=== PATIENT | female | born 1960 | race African-American/Black ===

== ENCOUNTER 2016-07-08 12:26 | Emergency (ER) | payer BC, OTHER ==
[~2016-07-08] VITALS: Ht 160 cm; Wt 83.9 kg
--- NOTE | ~2016-07-08 | EKG ---
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
[~2016-07-08 12:26] MED LIST: ASPIR 8181 MG PO; ASPIRIN EC81 M1 PO; ATIVAN1 MG PO; AZITHROMYCIN 2250 MG PO; BENAZEPRIL 10 M10 MG PO; BIOTIN800 MCG PO; CALCIUM 500 +1 EAC5 PO; CELLCEPT500 MG PO; CLEOCIN HCL300 MG PO; DEXILANT60 MG PO; DURAGESIC1 EAC2 TD; FIBER LAXATIV0.52 GM PO; HYDROCHLOROTHIA25 M2 PO; HYDROCODONE-APA1 TA1 PO; HYDROXYCHLOROQ200 M1 PO; LOPRESSOR25 PO; LORTAB 5 MG/5001 TA1 PO; MAXZIDE-25 MG1 EACH PO; MELOXICAM15 MG PO; METFORMIN HCL500 MG PO; MOBIC15 MG PO; NAPROSYN500 MG PO; OMEPRAZOLE20 MG PO; PERCOCET 5-3251 EACH PO; PLAVIX 75 MG TA75 M1 PO; PRENATAL; PRILOSEC 10MG C10 MG PO; VALACYCLOVIR500 MG PO; VITAMIN D 5050000 I1 PO
[2016-07-08 14:23] LABS: MCH 29.9 pg (26.0-34.0); PLATELET COUNT 359 thou/uL (150-400); RBC 3.67 mil/uL (4.20-5.00)
[2016-07-08 14:25] LABS: HEMATOCRIT 32.7 % (37.0-47.0); MCHC 33.6 g/dL (28.0-37.0); MCV 89.1 fL (80.0-100.0); WBC 3.3 thou/uL (4.0-11.0)
[2016-07-08 14:29] LABS: CALCIUM 9.5 mg/dL (8.5-10.1); CREATININE 1.6 mg/dL (0.6-1.3); POTASSIUM 5.2 mmol/L (3.5-5.1)
[2016-07-08 14:39] LABS: MANUAL DIFF YES
[2016-07-08 15:00] LABS: ABSOLUTE NEUTROPHILS 1.4 thou/uL (1.4-8.2); PLATELET ESTIMATE NORMAL; TOTAL CELL COUNT 100
== END 2016-07-08 15:23 ==
LOC: ER 12:26
PROVIDERS: Emergency Medicine
DX: K92.2 Gastrointestinal hemorrhage, unspecified (principal); M32.9 Systemic lupus erythematosus, unspecified; K21.9 Gastro-esophageal reflux disease without esophagitis; F41.9 Anxiety disorder, unspecified; Z90.49 Acquired absence of other specified parts of digestive tract; G89.29 Other chronic pain; Z88.1 Allergy status to other antibiotic agents; Z88.0 Allergy status to penicillin; Z88.5 Allergy status to narcotic agent; Z88.8 Allergy status to other drugs, medicaments and biological substances; Z87.891 Personal history of nicotine dependence

== ENCOUNTER → 2016-07-11 | Outpatient (CLI) | payer BC, OTHER | LOC: HYPER 07:06 | DX: T81.89XA Other complications of procedures, not elsewhere classified, initial encounter (principal); I70.235 Atherosclerosis of native arteries of right leg with ulceration of other part of foot; L97.511 Non-pressure chronic ulcer of other part of right foot limited to breakdown of skin; E11.621 Type 2 diabetes mellitus with foot ulcer; I10 Essential (primary) hypertension; Z79.84 Long term (current) use of oral hypoglycemic drugs; Z86.718 Personal history of other venous thrombosis and embolism; Z87.891 Personal history of nicotine dependence; Y83.8 Other surgical procedures as the cause of abnormal reaction of the patient, or of later complication, without mention of misadventure at the time of the procedure ==

== ENCOUNTER → 2016-07-20 | Outpatient (CLI) | payer BC, OTHER | LOC: SPEC 12:40 | DX: I82.4Z1 Acute embolism and thrombosis of unspecified deep veins of right distal lower extremity (principal); M32.8 Other forms of systemic lupus erythematosus; K21.9 Gastro-esophageal reflux disease without esophagitis; J18.8 Other pneumonia, unspecified organism; F41.9 Anxiety disorder, unspecified; Z87.891 Personal history of nicotine dependence ==

== ENCOUNTER → 2016-07-27 | Outpatient (CLI) | payer BC, OTHER | LOC: NUC | DX: R07.9 Chest pain, unspecified (principal) ==

== ENCOUNTER → 2016-07-27 | Outpatient (CLI) | payer BC, OTHER | LOC: HYPER | DX: T81.89XD Other complications of procedures, not elsewhere classified, subsequent encounter (principal); I70.235 Atherosclerosis of native arteries of right leg with ulceration of other part of foot; L97.514 Non-pressure chronic ulcer of other part of right foot with necrosis of bone; E11.621 Type 2 diabetes mellitus with foot ulcer; E11.52 Type 2 diabetes mellitus with diabetic peripheral angiopathy with gangrene; M32.8 Other forms of systemic lupus erythematosus; I10 Essential (primary) hypertension; Z79.84 Long term (current) use of oral hypoglycemic drugs; Z86.718 Personal history of other venous thrombosis and embolism; Z87.891 Personal history of nicotine dependence; Y83.8 Other surgical procedures as the cause of abnormal reaction of the patient, or of later complication, without mention of misadventure at the time of the procedure ==

== ENCOUNTER → 2016-08-24 | Outpatient (CLI) | payer BC, OTHER | LOC: HYPER 07:08 | DX: I70.235 Atherosclerosis of native arteries of right leg with ulceration of other part of foot (principal); L97.514 Non-pressure chronic ulcer of other part of right foot with necrosis of bone; E11.621 Type 2 diabetes mellitus with foot ulcer; E11.52 Type 2 diabetes mellitus with diabetic peripheral angiopathy with gangrene; I10 Essential (primary) hypertension; M32.8 Other forms of systemic lupus erythematosus; Z86.718 Personal history of other venous thrombosis and embolism; Z79.84 Long term (current) use of oral hypoglycemic drugs; Z87.891 Personal history of nicotine dependence ==

== ENCOUNTER 2016-09-14 05:48 | Day surgery (SDC) | payer BC, OTHER ==
[~2016-09-14] VITALS: Ht 162.6 cm; Wt 81.2 kg
--- NOTE | ~2016-09-14 | S ---
[facility] [place] [address] SURGICAL PATH RPT PROCEDURE Name: EJ VILLALPANDO Room #: DEP [facility]..#: [id number] Admission: 09/14/16 Date of : 64 Discharge: 09/14/16 Report #: [id number] Path Case #: [id number] PATHOLOGY REPORT COLLECTION DATE: 09/14/2016 RECEIVED DATE: 09/14/2016 SUBMITTING PHYS: Dr. Enrrique Garcia OTHER PHYS: Dr. Danie Trinh SPECIMEN(S) RECEIVED: A.Right foot second digit * * * * * * * * * * * * FINAL DIAGNOSIS: "Right foot second digit", amputation: - Skin and subcutaneous tissue with acute inflammation, necrosis, granulation tissue and fat necrosis with pseudoepitheliomatous hyperplasia. - Decalcified bone and articular cartilage with focal acute osteomyelitis. PATHOLOGIST: Jodie Bryant M.D. REPORT ELECTRONICALLY SIGNED BY: Jodie Bryant M.D. DATE/TIME: 09/16/2016 17:09 * * * * * * * * * * * * GROSS PATHOLOGY: The specimen is received in formalin labeled "Ej Villalpando, right foot second toe". Received is an amputated digit measuring 2.8 x 2.2 x 1.8 cm in greatest dimensions. The bone margin is not grossly identified. The soft tissue margin is inked black. The nail is present and has previously been inked green. The epidermal surface is blackened and hard in appearance. Soft tissue margin is inked black. A full-length longitudinal cross-section is submitted in cassette A1, following decalcification. Also received within the specimen container is an additional segment of bone displaying one jagged margin and one convex margin measuring 1.3 x 0.9 x 0.7 cm. The jagged margin is inked black. A full-length longitudinal cross section is submitted in cassette A2, following decalcification. (CAA; 09/15/2016) CLINICAL HISTORY: Right foot second toe gangrene [address] [address] SURGICAL PATH RPT PROCEDURE Name: EJ VILLALPANDO Room #: DE[place] [facility] [place]#: [id number] Admission: 09/14/16 Date of : 64 Discharge: 09/14/16 Report #: [id number] Path Case #: [id number] INITIAL CPT CODE(S): A; 48779, 60095 Professional services performed by [facility] at [address], [place] [address] Technical services performed by [facility] at [address] [place] [address], [place] [address]. [facility] [address] [place] [address] PHONE: [phone] DIRECTOR: David Grimaldo M.D. * * * END OF REPORT * * *
--- NOTE | ~2016-09-14 | O ---
[facility] [place] [address] OPERATIVE REPORT Name: EJ BURR Room #: DEP [facility]..#: [id number] Admission: 09/14/16 Attend Phys: Enrrique Garcia MD Discharge: 09/14/16 Date of : 64 Report #: [id number] THIS REPORT FOR: //name// CC: Enrrique Garcia Danie Trinh DATE OF SERVICE: 09/14/2016 DATE OF SURGERY: 09/14/2016. PREOPERATIVE DIAGNOSIS: Right second toe gangrene. POSTOPERATIVE DIAGNOSIS: Right second toe gangrene. PROCEDURE: Right second toe amputation. SURGEON: Enrrique Garcia M.D. ANESTHESIA: General. ESTIMATED BLOOD LOSS: Minimal. DRAINS: No drains. TOURNIQUET TIME: 10 minutes. DESCRIPTION OF PROCEDURE: The patient brought to the operating room where she was placed under general anesthesia. Once under adequate general anesthesia, her right lower extremity was prepped and draped in sterile manner. The extremity was elevated and tourniquet placed to 300 mmHg. A fishmouth type incision was then made about the proximal phalanx of the second toe. This was dissected sharply down to the bone, which was then exposed and a sagittal saw was then used to transect the proximal phalanx at the second toe thus amputating the second toe completely. Once completely removed, the wound was irrigated copiously and closed with 3-0 nylon for the skin. The wounds were dressed with Xeroform, 4 x 4s, and sterile soft compressive dressing was placed. Tourniquet was let down at approximately 10 minutes, toes were pink and warm with good capillary refill. There were no complications from the procedure. The patient tolerated the procedure well and was taken to recovery room without incident. <ELECTRONICALLY SIGNED> By: Enrrique Garcia MD 09/16/16 1035 1048 1103 Enrrique Garcia MD /nt
[~2016-09-14 05:48] MED LIST changes: +BIOTIN5000 MCG PO; +IRON325 PO; +LIPITOR10 MG PO; +LYRICA 50 MG50 MG PO; +VITAMIN D250000 UNIT PO
[2016-09-14 08:30] VITALS: BP 109/66
[2016-09-14] MEDS ORDERED: PERCOCET PO (10:42)
[2016-09-14 11:44] VITALS: BP 109/66
== END 2016-09-14 12:25 | disposition home or self-care (01) ==
LOC: OR 05:48 → TBA 05:48 → OR 09:23
DX: E11.52 Type 2 diabetes mellitus with diabetic peripheral angiopathy with gangrene (principal); F41.9 Anxiety disorder, unspecified; G47.33 Obstructive sleep apnea (adult) (pediatric); I10 Essential (primary) hypertension; E78.00 Pure hypercholesterolemia, unspecified; K21.9 Gastro-esophageal reflux disease without esophagitis; M32.9 Systemic lupus erythematosus, unspecified; Z87.01 Personal history of pneumonia (recurrent); Z87.891 Personal history of nicotine dependence; Z90.49 Acquired absence of other specified parts of digestive tract; Z79.82 Long term (current) use of aspirin
CPT/HCPCS: 50010; 50101; 50386; 50951; 56527; 57091; 62110; 62900; 70005

== ENCOUNTER → 2016-09-23 | Outpatient (CLI) | payer BC, OTHER ==
[~2016-09-23] MED LIST changes: +PERCOCET PO
== END ==
LOC: ULTRA 03:21 → SPEC 03:21
DX: M79.661 Pain in right lower leg (principal); I73.9 Peripheral vascular disease, unspecified; I74.3 Embolism and thrombosis of arteries of the lower extremities; Z79.82 Long term (current) use of aspirin

== ENCOUNTER → 2016-09-23 | Outpatient (CLI) | payer BC, OTHER | LOC: HYPER 05:48 | DX: E11.621 Type 2 diabetes mellitus with foot ulcer (principal); L97.511 Non-pressure chronic ulcer of other part of right foot limited to breakdown of skin; E11.69 Type 2 diabetes mellitus with other specified complication; M32.8 Other forms of systemic lupus erythematosus; E11.52 Type 2 diabetes mellitus with diabetic peripheral angiopathy with gangrene; I10 Essential (primary) hypertension; I74.3 Embolism and thrombosis of arteries of the lower extremities; Z79.84 Long term (current) use of oral hypoglycemic drugs; Z48.89 Encounter for other specified surgical aftercare; Z86.718 Personal history of other venous thrombosis and embolism; Z87.891 Personal history of nicotine dependence ==

== ENCOUNTER → 2016-10-11 | Outpatient (CLI) | payer BC, OTHER | LOC: HYPER 07:09 | DX: T81.89XD Other complications of procedures, not elsewhere classified, subsequent encounter (principal); I70.235 Atherosclerosis of native arteries of right leg with ulceration of other part of foot; E11.621 Type 2 diabetes mellitus with foot ulcer; L97.514 Non-pressure chronic ulcer of other part of right foot with necrosis of bone; M32.8 Other forms of systemic lupus erythematosus; E11.52 Type 2 diabetes mellitus with diabetic peripheral angiopathy with gangrene; I10 Essential (primary) hypertension; Z86.718 Personal history of other venous thrombosis and embolism; Z79.84 Long term (current) use of oral hypoglycemic drugs; Z87.891 Personal history of nicotine dependence; Y83.8 Other surgical procedures as the cause of abnormal reaction of the patient, or of later complication, without mention of misadventure at the time of the procedure ==

== ENCOUNTER → 2016-10-26 | Outpatient (CLI) | payer BC, OTHER | LOC: HYPER 06:56 | DX: T81.89XD Other complications of procedures, not elsewhere classified, subsequent encounter (principal); E11.621 Type 2 diabetes mellitus with foot ulcer; L97.514 Non-pressure chronic ulcer of other part of right foot with necrosis of bone; I70.235 Atherosclerosis of native arteries of right leg with ulceration of other part of foot; M32.8 Other forms of systemic lupus erythematosus; E11.52 Type 2 diabetes mellitus with diabetic peripheral angiopathy with gangrene; I10 Essential (primary) hypertension; Z48.89 Encounter for other specified surgical aftercare; Z86.718 Personal history of other venous thrombosis and embolism; Z87.891 Personal history of nicotine dependence; Y83.8 Other surgical procedures as the cause of abnormal reaction of the patient, or of later complication, without mention of misadventure at the time of the procedure ==

== ENCOUNTER → 2016-11-07 | Outpatient (CLI) | payer BC, OTHER | LOC: HYPER 06:58 | DX: T81.89XD Other complications of procedures, not elsewhere classified, subsequent encounter (principal); I70.235 Atherosclerosis of native arteries of right leg with ulceration of other part of foot; E11.621 Type 2 diabetes mellitus with foot ulcer; L97.514 Non-pressure chronic ulcer of other part of right foot with necrosis of bone; M32.8 Other forms of systemic lupus erythematosus; I96 Gangrene, not elsewhere classified; I10 Essential (primary) hypertension; Z87.891 Personal history of nicotine dependence; Z79.84 Long term (current) use of oral hypoglycemic drugs; Z86.718 Personal history of other venous thrombosis and embolism; Y83.8 Other surgical procedures as the cause of abnormal reaction of the patient, or of later complication, without mention of misadventure at the time of the procedure ==

== ENCOUNTER → 2016-12-02 | Outpatient (CLI) | payer BC, OTHER | LOC: HYPER 11-28 17:29 | DX: T87.89 Other complications of amputation stump (principal); E11.621 Type 2 diabetes mellitus with foot ulcer; L97.514 Non-pressure chronic ulcer of other part of right foot with necrosis of bone; E11.52 Type 2 diabetes mellitus with diabetic peripheral angiopathy with gangrene; I70.235 Atherosclerosis of native arteries of right leg with ulceration of other part of foot; I10 Essential (primary) hypertension; Z87.891 Personal history of nicotine dependence; Z86.718 Personal history of other venous thrombosis and embolism; Z48.89 Encounter for other specified surgical aftercare; Z79.84 Long term (current) use of oral hypoglycemic drugs; Y83.5 Amputation of limb(s) as the cause of abnormal reaction of the patient, or of later complication, without mention of misadventure at the time of the procedure ==

== ENCOUNTER → 2016-12-08 | Outpatient (CLI) | payer BC, OTHER | LOC: SPEC 11:51 | DX: I73.9 Peripheral vascular disease, unspecified (principal); E04.2 Nontoxic multinodular goiter; J30.2 Other seasonal allergic rhinitis; E06.3 Autoimmune thyroiditis; K21.9 Gastro-esophageal reflux disease without esophagitis; M32.9 Systemic lupus erythematosus, unspecified; R49.0 Dysphonia; R09.89 Other specified symptoms and signs involving the circulatory and respiratory systems; Z79.01 Long term (current) use of anticoagulants ==

== ENCOUNTER → 2017-05-11 | Outpatient (CLI) | payer BC, OTHER ==
[~2017-05-11] MED LIST changes: +VITAMIN C100 MG PO; +ZANAFLEX4 MG PO
== END ==
LOC: SPEC 06:20 → ULTRA 10:06
DX: I73.9 Peripheral vascular disease, unspecified (principal); I99.8 Other disorder of circulatory system; Z98.890 Other specified postprocedural states; Z98.84 Bariatric surgery status; Z98.61 Coronary angioplasty status

== ENCOUNTER → 2018-02-26 | Outpatient (CLI) | payer OTHER | LOC: RAD 03:01 | DX: Z12.31 Encounter for screening mammogram for malignant neoplasm of breast (principal) ==

== ENCOUNTER → 2018-05-01 | Outpatient (CLI) | payer OTHER | LOC: SPEC 09:47 | DX: I73.9 Peripheral vascular disease, unspecified (principal) ==

== ENCOUNTER → 2018-05-07 | Outpatient (CLI) | payer OTHER ==
[~2018-05-07] VITALS: Ht 165.1 cm; Wt 80.3 kg
[~2018-05-07] MED LIST changes: +GABAPENTIN 100100 MG PO
[2018-05-07 08:34] VITALS: BP 124/64
[2018-05-07 08:38] LABS: HEMATOCRIT 33.1 % (37.0-47.0); HEMOGLOBIN 10.8 gm/dL (12.0-15.0); MCHC 32.7 g/dL (28.0-37.0); MCV 88.8 fL (80.0-100.0); RBC 3.73 mil/uL (4.20-5.00); RDW 15.1 % (10.5-14.5); WBC 3.2 thou/uL (4.0-11.0)
[2018-05-07 08:51] LABS: CALCIUM 8.9 mg/dL (8.5-10.1)
[2018-05-07 08:52] LABS: PROTIME 9.4 Seconds (9.3-11.4)
[2018-05-07 11:50] VITALS: BP 129/67
[2018-05-07 12:06] VITALS: BP 136/51
[2018-05-07 12:42] VITALS: BP 122/55
== END | disposition home or self-care (01) ==
LOC: SPEC 07:46
PROVIDERS: Radiology Diagnostic Radiology
DX: I70.211 Atherosclerosis of native arteries of extremities with intermittent claudication, right leg (principal); I10 Essential (primary) hypertension; E11.9 Type 2 diabetes mellitus without complications; E78.00 Pure hypercholesterolemia, unspecified; F41.9 Anxiety disorder, unspecified; Z90.49 Acquired absence of other specified parts of digestive tract; Z98.890 Other specified postprocedural states; Z88.0 Allergy status to penicillin; Z88.8 Allergy status to other drugs, medicaments and biological substances; Z79.82 Long term (current) use of aspirin; Z79.899 Other long term (current) drug therapy; Z79.01 Long term (current) use of anticoagulants; Z86.718 Personal history of other venous thrombosis and embolism

== ENCOUNTER → 2018-06-07 | Outpatient (CLI) | payer OTHER | LOC: SPEC 09:45 | DX: I77.1 Stricture of artery (principal) ==

== ENCOUNTER → 2018-07-06 | Outpatient (CLI) | payer OTHER | LOC: SPEC 14:52 | DX: I73.9 Peripheral vascular disease, unspecified (principal) ==

== ENCOUNTER → 2018-07-19 | Outpatient (CLI) | payer OTHER | LOC: ULTRA 10:37 | DX: R10.32 Left lower quadrant pain (principal) ==

== ENCOUNTER → 2018-10-09 | Outpatient (CLI) | payer OTHER | LOC: SPEC 07:56 | DX: T87.89 Other complications of amputation stump (principal); M32.9 Systemic lupus erythematosus, unspecified; K21.9 Gastro-esophageal reflux disease without esophagitis; E11.9 Type 2 diabetes mellitus without complications; I10 Essential (primary) hypertension; E78.00 Pure hypercholesterolemia, unspecified; F41.9 Anxiety disorder, unspecified; Z89.421 Acquired absence of other right toe(s); Z90.49 Acquired absence of other specified parts of digestive tract; Z92.3 Personal history of irradiation; Z88.0 Allergy status to penicillin; Z88.1 Allergy status to other antibiotic agents; Z88.5 Allergy status to narcotic agent; Z79.899 Other long term (current) drug therapy; Y83.5 Amputation of limb(s) as the cause of abnormal reaction of the patient, or of later complication, without mention of misadventure at the time of the procedure; Y92.89 Other specified places as the place of occurrence of the external cause ==

== ENCOUNTER → 2018-12-31 | Outpatient (CLI) | payer OTHER | LOC: ULTRA 09:47 | DX: I73.9 Peripheral vascular disease, unspecified (principal) ==

== ENCOUNTER → 2019-02-27 | Outpatient (CLI) | payer OTHER ==
[~2019-02-27] MED LIST changes: +ALL DAY ALLERGY10 M3 PO; +AZELASTINE137 MCG/0. NASAL; +BETAMETHASONE D60 M2 PO; +CYANOCOBAL1000 MCG/1 IM; +DILTIAZEM 24HR120 M1 PO; +GLUCOPHAGE XR750 M1 PO; +HAIR, SKIN & N1 EAC3 PO; +NEURONTIN300 MG PO; +PANTOPRAZOLE SO40 M1 PO; +STEGLATRO15 MG PO; +STOOL SOFTENER100 MG PO; +VITAMIN C500 M1 PO
== END ==
LOC: RAD 07:49
DX: Z12.31 Encounter for screening mammogram for malignant neoplasm of breast (principal)

== ENCOUNTER → 2019-03-06 | Day surgery (SDC) | payer OTHER ==
[~2019-03-06] VITALS: Ht 162.6 cm; Wt 80.7 kg
[2019-03-06 09:44] LABS: HEMATOCRIT 36.9 % (37.0-47.0); HEMOGLOBIN 11.7 gm/dL (12.0-15.0); MCH 28.7 pg (26.0-34.0); MCHC 31.8 g/dL (28.0-37.0); MCV 90.2 fL (80.0-100.0); RBC 4.08 mil/uL (4.20-5.00); RDW 14.4 % (10.5-14.5); WBC 3.3 thou/uL (4.0-11.0)
[2019-03-06 09:48] LABS: CALCIUM 9.6 mg/dL (8.5-10.1); CREATININE 1.2 mg/dL (0.6-1.0); POTASSIUM 4.2 mmol/L (3.5-5.1)
[2019-03-06 11:06] VITALS: BP 129/62
[2019-03-06 12:30] VITALS: BP 129/62
--- NOTE | 2019-03-06 13:53 | O ---
[facility] [place] [address] OPERATIVE REPORT Name: EJ BURR Room #: REG [facility]#: [id number] Admission: 03/06/19 Attend Phys: Clinton Robbins MD Discharge: Date of : 64 Report #: [id number] THIS REPORT FOR: //name// CC: Danie Taveras DATE OF SERVICE: 03/06/[address] Clinton Robbins, Dr. Danie Trinh. PREOPERATIVE DIAGNOSIS: Ventral incisional hernia. POSTOPERATIVE DIAGNOSIS: Ventral incisional hernia. PROCEDURE: Repair of a ventral incisional hernia with a small Ventralex [place] mesh patch. SURGEON: Clinton Robbins MD ANESTHESIA: General. DESCRIPTION OF PROCEDURE: The patient was brought to the operating room and placed on operative table in the supine position. Sequential compression devices were in place for DVT prophylaxis. There was no indication for preoperative antibiotics. The patient underwent a general LMA anesthesia and the abdomen was then prepped and draped in a sterile fashion. Skin and subcutaneous tissue around the area was infiltrated with 0.5% Marcaine. A transverse supraumbilical skin incision was then performed using #15 scalpel blade. Hemostasis was obtained using electrocautery. Dissection was carried down through subcutaneous tissue to the hernia sac which was dissected free, opened and the contents of the sac was then reduced back into the abdomen. Hernia sac was excised. A small Ventralex ST hernia patch was then placed intraabdominally and secured circumferentially with interrupted horizontal mattress transfascial 0 Prolene sutures. The fascia was then closed over the mesh patch using interrupted [id number] #1 PDS suture. The hernia tails were cut and then secured superiorly and inferiorly with simple interrupted 2-0 Vicryl sutures. The subcutaneous tissue was then reapproximated using simple interrupted 2-0 chromic sutures and the skin then closed with a running 4-0 subcuticular Vicryl stitch. Wound was then dressed with Dermabond, Telfa, 4 x 4 gauze, sponge and tape. The patient was then awakened from the general anesthesia and taken to recovery room in good condition. Estimated blood loss [address] [address] OPERATIVE REPORT Name: EJ BURR HENRIQUE Room #: REG [facility].#: [id number] Admission: 03/06/19 Attend Phys: Clinton Robbins MD Discharge: Date of : 64 Report #: [id number] was approximately 10 mL and the patient tolerated procedure well. All sponge, lap and instrument counts correct x 2. <ELECTRONICALLY SIGNED> By: Clinton Robbins MD 03/06/19 1353 1210 1219 Clinton Robbins MD /nt
--- NOTE | 2019-03-07 16:58 | EKG ---
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1960 Requested By: Clinton Robbins Order Number: [id number] MD: Chris Campbell Measurements Intervals [place] Rate: 66 P: 30 MS: 154 QRS: 35 QRSD: 70 T: 20 QT: 390 QTc: 409 Interpretive Statements Sinus rhythm Borderline T wave abnormalities Compared to ECG 07/08/2016 12:32:15 T-wave abnormality now present Sinus tachycardia no longer present Electronically Signed On 03-07-2019 16:58:19 [employer] by Chris Campbell [email or web address] <ELECTRONICALLY SIGNED> By: Chris Campbell MD, [facility] 03/07/19 1658 0 0 Chris Campbell MD, [facility] /EPI
== END | disposition home or self-care (01) ==
LOC: OR 08:53
PROVIDERS: Surgery
DX: K43.2 Incisional hernia without obstruction or gangrene (principal); Z98.890 Other specified postprocedural states; Z88.8 Allergy status to other drugs, medicaments and biological substances; Z79.899 Other long term (current) drug therapy; Z90.49 Acquired absence of other specified parts of digestive tract; Z88.0 Allergy status to penicillin
CPT/HCPCS: 50010; 50101; 50119; 50386; 50417; 54118; 56524; 56525; 56526; 62110; 62900; 70005

== ENCOUNTER → 2019-10-11 | Outpatient (CLI) | payer OTHER | LOC: SJCVCIMAG 10:04 | PROVIDERS: ATTEND Internal Medicine | DX: I70.203 Unspecified atherosclerosis of native arteries of extremities, bilateral legs (principal); E11.9 Type 2 diabetes mellitus without complications; I10 Essential (primary) hypertension; M32.9 Systemic lupus erythematosus, unspecified; E78.00 Pure hypercholesterolemia, unspecified; R07.9 Chest pain, unspecified; E78.5 Hyperlipidemia, unspecified; Z87.19 Personal history of other diseases of the digestive system; Z82.49 Family history of ischemic heart disease and other diseases of the circulatory system; Z87.891 Personal history of nicotine dependence; Z79.82 Long term (current) use of aspirin; Z79.899 Other long term (current) drug therapy; Z79.84 Long term (current) use of oral hypoglycemic drugs ==

== ENCOUNTER → 2019-10-22 | Outpatient (CLI) | payer OTHER ==
[~2019-10-22] MED LIST changes: +BIOTIN5 M1 PO; +CELLCEPT500 M1 IVPB; +DESYREL150 MG PO; +ESTRACE0.5 MG PO; +FISH OIL 1,001000 M3 PO; +METHYLPREDNISOLO4 MG PO; +PSYLLIUM HUSK1 GM; +VITAMIN D21250 MC1 PO
== END ==
LOC: SJCVCIMAG 08:41
PROVIDERS: ATTEND Internal Medicine
DX: I08.8 Other rheumatic multiple valve diseases (principal); R00.0 Tachycardia, unspecified; I10 Essential (primary) hypertension; E78.5 Hyperlipidemia, unspecified; E11.9 Type 2 diabetes mellitus without complications; Z82.49 Family history of ischemic heart disease and other diseases of the circulatory system; Z79.82 Long term (current) use of aspirin; Z79.899 Other long term (current) drug therapy

== ENCOUNTER 2019-11-01 07:54 | Outpatient (CLI) | payer OTHER ==
[~2019-11-01] VITALS: Ht 165.1 cm; Wt 81.6 kg
[~2019-11-01 07:54] MED LIST changes: -BIOTIN5 M1 PO; -CELLCEPT500 M1 IVPB; -DESYREL150 MG PO; -ESTRACE0.5 MG PO; -FISH OIL 1,001000 M3 PO; -METHYLPREDNISOLO4 MG PO; -PSYLLIUM HUSK1 GM; -VITAMIN D21250 MC1 PO
[2019-11-01 08:40] VITALS: BP 132/66
[2019-11-01 08:52] LABS: HEMATOCRIT 35.7 % (37.0-47.0); HEMOGLOBIN 11.7 gm/dL (12.0-15.0); MCH 29.9 pg (26.0-34.0); MCHC 32.8 g/dL (28.0-37.0); MCV 91.2 fL (80.0-100.0); RBC 3.91 mil/uL (4.20-5.00); RDW 14.5 % (10.5-14.5); WBC 3.7 thou/uL (4.0-11.0)
[2019-11-01 09:02] LABS: CALCIUM 9.2 mg/dL (8.5-10.1); CREATININE 1.3 mg/dL (0.6-1.0)
[2019-11-01] MEDS ORDERED: BIOTIN5 M1 PO (09:34)
[2019-11-01] MEDS ORDERED: ESTRACE0.5 MG PO (09:37)
[2019-11-01] MEDS ORDERED: VITAMIN D21250 MC1 PO (09:37)
[2019-11-01] MEDS ORDERED: FISH OIL 1,001000 M3 PO ×2 (09:38→09:39)
[2019-11-01] MEDS ORDERED: NEURONTIN300 MG PO (09:41)
[2019-11-01] MEDS ORDERED: METHYLPREDNISOLO4 MG PO (09:44)
[2019-11-01] MEDS ORDERED: CELLCEPT500 M1 IVPB (09:46)
[2019-11-01] MEDS ORDERED: PSYLLIUM HUSK1 GM (09:48)
[2019-11-01] MEDS ORDERED: DESYREL150 MG PO (09:49)
[2019-11-01 15:00] VITALS: BP 120/77
[2019-11-01] MEDS ORDERED: PLAVIX 75 MG TA75 M1 PO (15:04)
[2019-11-01 15:52] VITALS: BP 128/67
[2019-11-01 17:41] VITALS: BP 128/67
== END 2019-11-01 18:00 | disposition home or self-care (01) ==
LOC: CATH 07:54 → 2N 15:37 → CATH 18:00
PROVIDERS: ATTEND Nuclear Medicine Nuclear Cardiology
DX: I70.238 Atherosclerosis of native arteries of right leg with ulceration of other part of lower leg (principal); L97.919 Non-pressure chronic ulcer of unspecified part of right lower leg with unspecified severity; I70.1 Atherosclerosis of renal artery; I10 Essential (primary) hypertension; E78.5 Hyperlipidemia, unspecified; K21.9 Gastro-esophageal reflux disease without esophagitis; E11.9 Type 2 diabetes mellitus without complications; D64.9 Anemia, unspecified; Z98.890 Other specified postprocedural states; Z90.49 Acquired absence of other specified parts of digestive tract; Z79.899 Other long term (current) drug therapy; Z87.891 Personal history of nicotine dependence
CPT/HCPCS: 10081

== ENCOUNTER → 2019-11-08 | Outpatient (CLI) | payer OTHER ==
[~2019-11-08] MED LIST changes: +BIOTIN5 M1 PO; +CELLCEPT500 M1 IVPB; +DESYREL150 MG PO; +ESTRACE0.5 MG PO; +FISH OIL 1,001000 M3 PO; +METHYLPREDNISOLO4 MG PO; +PSYLLIUM HUSK1 GM; +VITAMIN D21250 MC1 PO
== END ==
LOC: SJCVC 10:40
PROVIDERS: ATTEND Internal Medicine
DX: R07.9 Chest pain, unspecified (principal); R06.09 Other forms of dyspnea; G47.33 Obstructive sleep apnea (adult) (pediatric); K21.9 Gastro-esophageal reflux disease without esophagitis; E11.9 Type 2 diabetes mellitus without complications; I10 Essential (primary) hypertension; Z82.49 Family history of ischemic heart disease and other diseases of the circulatory system; Z79.899 Other long term (current) drug therapy; Z87.891 Personal history of nicotine dependence

== ENCOUNTER → 2019-11-14 | Outpatient (CLI) | payer OTHER | LOC: RAD 11:04 | PROVIDERS: ATTEND Internal Medicine | DX: J98.4 Other disorders of lung (principal) ==

== ENCOUNTER → 2019-11-15 | Outpatient (CLI) | payer OTHER | LOC: CAT 08:11 | PROVIDERS: ATTEND Internal Medicine | DX: D35.01 Benign neoplasm of right adrenal gland (principal); R06.09 Other forms of dyspnea; I70.90 Unspecified atherosclerosis ==

== ENCOUNTER → 2020-02-25 | Outpatient (CLI) | payer OTHER | LOC: SJCVCIMAG 12:16 | PROVIDERS: ATTEND Nuclear Medicine Nuclear Cardiology | DX: I65.23 Occlusion and stenosis of bilateral carotid arteries (principal); I70.202 Unspecified atherosclerosis of native arteries of extremities, left leg; E11.51 Type 2 diabetes mellitus with diabetic peripheral angiopathy without gangrene; I10 Essential (primary) hypertension; M32.9 Systemic lupus erythematosus, unspecified; E78.00 Pure hypercholesterolemia, unspecified; I77.9 Disorder of arteries and arterioles, unspecified; Z95.828 Presence of other vascular implants and grafts; Z79.899 Other long term (current) drug therapy; Z87.891 Personal history of nicotine dependence ==

== ENCOUNTER → 2020-03-02 | Outpatient (CLI) | payer OTHER | LOC: CAT 09:31 | PROVIDERS: ATTEND Nuclear Medicine Nuclear Cardiology | DX: Z13.6 Encounter for screening for cardiovascular disorders (principal); I25.10 Atherosclerotic heart disease of native coronary artery without angina pectoris; E78.00 Pure hypercholesterolemia, unspecified ==

== ENCOUNTER → 2020-03-02 | Outpatient (CLI) | payer OTHER | LOC: BC 09:25 | PROVIDERS: ATTEND Internal Medicine | DX: Z12.31 Encounter for screening mammogram for malignant neoplasm of breast (principal) ==

== ENCOUNTER → 2020-09-01 | Outpatient (CLI) | payer OTHER ==
[~2020-09-01] MED LIST changes: +JARDIANCE25 MG PO; +VITAMIN B12-FO1 EAC1 PO
== END ==
LOC: SJCVCIMAG 08:32
PROVIDERS: ATTEND Nuclear Medicine Nuclear Cardiology
DX: T82.856A Stenosis of peripheral vascular stent, initial encounter (principal); I73.9 Peripheral vascular disease, unspecified; I77.9 Disorder of arteries and arterioles, unspecified; I10 Essential (primary) hypertension; E11.51 Type 2 diabetes mellitus with diabetic peripheral angiopathy without gangrene; E78.00 Pure hypercholesterolemia, unspecified; G47.33 Obstructive sleep apnea (adult) (pediatric); Z90.49 Acquired absence of other specified parts of digestive tract; Z98.890 Other specified postprocedural states; Z95.828 Presence of other vascular implants and grafts; Z88.0 Allergy status to penicillin; Z88.8 Allergy status to other drugs, medicaments and biological substances; Z79.84 Long term (current) use of oral hypoglycemic drugs; Z79.899 Other long term (current) drug therapy; Z87.891 Personal history of nicotine dependence; Z82.49 Family history of ischemic heart disease and other diseases of the circulatory system; Y83.8 Other surgical procedures as the cause of abnormal reaction of the patient, or of later complication, without mention of misadventure at the time of the procedure; Y92.89 Other specified places as the place of occurrence of the external cause

== ENCOUNTER → 2020-09-09 | Outpatient (CLI) | payer OTHER ==
[~2020-09-09] VITALS: Ht 165.1 cm; Wt 81.6 kg
[2020-09-09 07:11] VITALS: BP 138/75
[2020-09-09 07:48] LABS: HEMATOCRIT 39.1 % (37.0-47.0); HEMOGLOBIN 12.4 gm/dL (12.0-15.0); MCH 29.3 pg (26.0-34.0); MCHC 31.8 g/dL (28.0-37.0); RBC 4.25 mil/uL (4.20-5.00); RDW 15.2 % (10.5-14.5); WBC 4.2 thou/uL (4.0-11.0)
[2020-09-09 07:56] LABS: CALCIUM 9.6 mg/dL (8.5-10.1); CREATININE 1.1 mg/dL (0.6-1.0); POTASSIUM 4.1 mmol/L (3.5-5.1)
== END | disposition home or self-care (01) ==
LOC: CATH 06:19
PROVIDERS: ATTEND Nuclear Medicine Nuclear Cardiology
DX: I70.211 Atherosclerosis of native arteries of extremities with intermittent claudication, right leg (principal); M79.604 Pain in right leg; I70.1 Atherosclerosis of renal artery; I10 Essential (primary) hypertension; I25.10 Atherosclerotic heart disease of native coronary artery without angina pectoris; E78.5 Hyperlipidemia, unspecified; E11.9 Type 2 diabetes mellitus without complications; E78.00 Pure hypercholesterolemia, unspecified; D64.9 Anemia, unspecified; F41.9 Anxiety disorder, unspecified; K21.9 Gastro-esophageal reflux disease without esophagitis; E66.9 Obesity, unspecified; Z98.890 Other specified postprocedural states; Z79.899 Other long term (current) drug therapy; Z87.891 Personal history of nicotine dependence; Z90.49 Acquired absence of other specified parts of digestive tract; Z88.0 Allergy status to penicillin; Z88.8 Allergy status to other drugs, medicaments and biological substances

== ENCOUNTER → 2021-01-14 | Outpatient (CLI) | payer OTHER | LOC: SJCVCIMAG 09:02 | PROVIDERS: ATTEND Nuclear Medicine Nuclear Cardiology | DX: I65.23 Occlusion and stenosis of bilateral carotid arteries (principal); I70.201 Unspecified atherosclerosis of native arteries of extremities, right leg; G47.30 Sleep apnea, unspecified; I77.9 Disorder of arteries and arterioles, unspecified; I10 Essential (primary) hypertension; E11.9 Type 2 diabetes mellitus without complications; E78.00 Pure hypercholesterolemia, unspecified; M32.9 Systemic lupus erythematosus, unspecified; K21.9 Gastro-esophageal reflux disease without esophagitis; Z95.828 Presence of other vascular implants and grafts; Z88.1 Allergy status to other antibiotic agents; Z88.0 Allergy status to penicillin; Z88.5 Allergy status to narcotic agent; Z88.8 Allergy status to other drugs, medicaments and biological substances; Z79.899 Other long term (current) drug therapy; Z87.891 Personal history of nicotine dependence ==

== ENCOUNTER → 2021-03-03 | Outpatient (CLI) | payer OTHER | LOC: BC 08:50 | PROVIDERS: ATTEND Internal Medicine | DX: Z12.31 Encounter for screening mammogram for malignant neoplasm of breast (principal); N64.89 Other specified disorders of breast ==

== ENCOUNTER → 2021-04-07 | Outpatient (CLI) | payer OTHER ==
[~2021-04-07] MED LIST changes: +AZELASTINE205.5 MCG/ NARES; +COMBIGAN EYE DR10 ML OPHTHALMIC; +ELIDEL CREAM 1%30 G1 TOP; +FLONASE 0.05%50 MCG NARES; +TRULICITY1.5 MG/0.5 SUBQ; +VITAMIN B-1100 M2 PO
== END ==
LOC: SJCVCIMAG 14:46
PROVIDERS: ATTEND Internal Medicine
DX: T82.856A Stenosis of peripheral vascular stent, initial encounter (principal); I73.9 Peripheral vascular disease, unspecified; I77.9 Disorder of arteries and arterioles, unspecified; I10 Essential (primary) hypertension; E11.9 Type 2 diabetes mellitus without complications; E78.00 Pure hypercholesterolemia, unspecified; E11.40 Type 2 diabetes mellitus with diabetic neuropathy, unspecified; K21.9 Gastro-esophageal reflux disease without esophagitis; G47.33 Obstructive sleep apnea (adult) (pediatric); Z88.1 Allergy status to other antibiotic agents; Z88.0 Allergy status to penicillin; Z88.5 Allergy status to narcotic agent; Z88.2 Allergy status to sulfonamides; Z88.8 Allergy status to other drugs, medicaments and biological substances; Z79.899 Other long term (current) drug therapy; Z87.891 Personal history of nicotine dependence; Y84.8 Other medical procedures as the cause of abnormal reaction of the patient, or of later complication, without mention of misadventure at the time of the procedure; Y92.89 Other specified places as the place of occurrence of the external cause

== ENCOUNTER → 2021-04-20 | Outpatient (CLI) | payer OTHER ==
[~2021-04-20] VITALS: Ht 165.1 cm; Wt 68.5 kg
[2021-04-20 08:32] VITALS: BP 103/64
== END | disposition home or self-care (01) ==
LOC: CATH 08:05
PROVIDERS: ATTEND Internal Medicine
DX: I70.211 Atherosclerosis of native arteries of extremities with intermittent claudication, right leg (principal); I70.1 Atherosclerosis of renal artery; M79.604 Pain in right leg; M79.605 Pain in left leg; I10 Essential (primary) hypertension; I25.10 Atherosclerotic heart disease of native coronary artery without angina pectoris; E11.9 Type 2 diabetes mellitus without complications; E78.00 Pure hypercholesterolemia, unspecified; K21.9 Gastro-esophageal reflux disease without esophagitis; G47.33 Obstructive sleep apnea (adult) (pediatric); G43.909 Migraine, unspecified, not intractable, without status migrainosus; Z98.890 Other specified postprocedural states; Z79.899 Other long term (current) drug therapy; Z90.49 Acquired absence of other specified parts of digestive tract; Z79.4 Long term (current) use of insulin; Z87.891 Personal history of nicotine dependence; Z88.0 Allergy status to penicillin; Z88.2 Allergy status to sulfonamides